=== PATIENT | female | born 1930 | race Caucasian/White ===

== ENCOUNTER → 2018-01-17 | Outpatient (CLI) | payer MEDICARE, OTHER ==
[~2018-01-17] MED LIST: ALLERPLEX; ASPIR 8181 MG PO; ATENOLOL 50MG T50 MG PO; BAYER CHEWABLE81 MG PO; CARDIZEM CD120 MG PO; CATALYN; COUMADIN 5 MG TA5 M1 PO; COZAAR 25 MG TA25 M1 PO; DILTIAZEM 24HR120 M1 PO; ENZYCORE; FISH OIL; IMMUPLEX; KEFLEX500 MG PO; LASIX 40 MG TAB40 M2 PO; LEVAQUIN 250 M250 MG PO; LOPRESSOR50 PO; NORCO 5-325 TA1 EACH PO; OMEGA; PROPAFENONE 15150 MG PO; RNA; SAVAYSA60 MG PO; VITAMIN C500 M1 PO; VITAMIN E; ZINC; ZYPAN; [UNRECOGNIZED DRUG - OTHER]; [UNRECOGNIZED DRUG - OTHER]
== END ==
LOC: M.MRI
DX: M19.011 Primary osteoarthritis, right shoulder (principal); M19.012 Primary osteoarthritis, left shoulder; M25.411 Effusion, right shoulder; M25.412 Effusion, left shoulder; G89.29 Other chronic pain